=== PATIENT | female | born 1990 | race Caucasian/White ===

== ENCOUNTER 2019-05-07 19:20 | Emergency (ER) | payer MEDICAID ==
[~2019-05-07] VITALS: Ht 139.7 cm; Wt 63.5 kg
[2019-05-07 19:28] VITALS: BP_SYST 119
[2019-05-07] MEDS ORDERED: NACL 0.9% 1,000 ML IV ONE (19:43)
[2019-05-07 20:01] LABS: BASOPHILS # (AUTO) 0.1 K/uL (0.0-0.2); BASOPHILS % (AUTO) 0.9 % (0.0-2.0); EOSINOPHILS # (AUTO) 0.2 K/uL (0.0-0.4); EOSINOPHILS % (AUTO) 1.9 % (0.0-4.0); HEMATOCRIT 38.7 % (36-48); HEMOGLOBIN 13.2 g/dL (12.0-16.0); LYMPHOCYTES # (AUTO) 3.5 K/uL (1.0-5.5); LYMPHOCYTES % (AUTO) 36.6 % (20.5-51.5); MEAN CORPUSCULAR HEMOGLOBIN 30 pg (27-31); MEAN CORPUSCULAR HGB CONC 34 % (32-36); MEAN CORPUSCULAR VOLUME 88 fL (79.0-98.0); MONOCYTES # (AUTO) 0.4 K/uL (0.0-1.0); MONOCYTES % (AUTO) 4.6 % (1.7-9.3); NEUTROPHILS # (AUTO) 5.4 K/uL (1.8-7.7); PLATELET COUNT (AUTO) 270 K/uL (130-430); RED BLOOD CELL COUNT(AUTO) 4.42 MIL/uL (4.2-6.2); RED CELL DISTRIBUTION WIDTH 13.7 % (9.0-15.0); WHITE BLOOD COUNT (AUTO) 9.6 K/uL (4.8-10.8)
[2019-05-07 20:05] LABS: BILIRUBIN,URINE NEGATIVE (NEGATIVE); BLOOD, URINE 3+ (NEGATIVE); CLARITY/URINE SL CLOUDY (CLEAR); COLOR,URINE YELLOW (YELLOW); GLUCOSE,URINE NEGATIVE (NEGATIVE); KETONES,URINE NEGATIVE (NEGATIVE); LEUKOCYTE ESTERASE ,URINE 1+ (NEGATIVE); NITRITE, URINE POSITIVE (NEGATIVE); PH,URINE 6.5 (5.0-8.0); PROTEIN URINE NEGATIVE (NEGATIVE); UROBILINOGEN,URINE 0.2 (0.2-1.0)
[2019-05-07 20:25] LABS: PROTHROMBIN TIME 9.8 SECS (9.5-12.5)
[2019-05-07] MEDS ORDERED: SULFAMETHOXAZOLE/TRIMETHOPR DS 1 TABLET PO ONE (20:30)
[2019-05-07 20:32] LABS: CALCIUM 9.4 mg/dL (8.4-11.0); CREATININE 0.67 mg/dL (0.55-1.30); POTASSIUM 3.4 mmol/L (3.5-5.1)
[2019-05-07 20:36] LABS: TOTAL BILIRUBIN 0.5 mg/dL (0.0-1.0)
[2019-05-07 20:37] LABS: BACTERIA,URINE MANY /HPF (None Seen); MUCUS,URINE None Seen /LPF (None Seen); YEAST,URINE Few /HPF (None Seen)
[2019-05-07] MEDS ORDERED: MORPHINE 4 MG/ML INJ. SYRINGE IVP ONE (23:15)
[2019-05-07 23:48] VITALS: BP_SYST 120
== END 2019-05-07 23:48 | disposition home or self-care (01) ==
LOC: SED 19:20
DX: N39.0 Urinary tract infection, site not specified (principal); Z90.49 Acquired absence of other specified parts of digestive tract; Z88.0 Allergy status to penicillin; Z88.1 Allergy status to other antibiotic agents; Z91.041 Radiographic dye allergy status; Z91.048 Other nonmedicinal substance allergy status
CPT/HCPCS: 36415; 74176; 80053; 81000; 81025; 82150; 83690; 85025; 85610; 87086; 96374; 99284; J2270; J7030; 87186-TC

== ENCOUNTER 2019-06-03 19:54 | Emergency (ER) | payer MEDICAID ==
[~2019-06-03] VITALS: Ht 139.7 cm; Wt 63.5 kg
[2019-06-03 20:07] VITALS: BP_SYST 112
[2019-06-03 20:28] LABS: BILIRUBIN,URINE NEGATIVE (NEGATIVE); BLOOD, URINE 2+ (NEGATIVE); COLOR,URINE YELLOW (YELLOW); GLUCOSE,URINE NEGATIVE (NEGATIVE); KETONES,URINE NEGATIVE (NEGATIVE); LEUKOCYTE ESTERASE ,URINE 1+ (NEGATIVE); NITRITE, URINE NEGATIVE (NEGATIVE); PROTEIN URINE NEGATIVE (NEGATIVE); UROBILINOGEN,URINE 0.2 (0.2-1.0)
[2019-06-03] MEDS ORDERED: DIAZEPAM 5 MG TABLET (VALIUM) PO ONE (20:30)
[2019-06-03] MEDS ORDERED: KETOROLAC TROMETHAMINE 30 MG VIAL IM ONE (20:30)
[2019-06-03 20:38] LABS: CLARITY/URINE HAZY (CLEAR)
[2019-06-03 20:39] LABS: BACTERIA,URINE FEW /HPF (None Seen); MUCUS,URINE None Seen /LPF (None Seen); RBC,URINE 0-3 /HPF (0-3)
[2019-06-03 21:18] LABS: POTASSIUM 3.6 mmol/L (3.5-5.1)
[2019-06-03 21:27] LABS: CREATININE 0.6 mg/dL (0.55-1.30)
[2019-06-03 22:30] VITALS: BP_SYST 112
== END 2019-06-03 22:30 | disposition home or self-care (01) ==
LOC: SED 19:54
DX: N39.0 Urinary tract infection, site not specified (principal); M54.5 Low back pain; J45.909 Unspecified asthma, uncomplicated; Z88.0 Allergy status to penicillin; Z88.1 Allergy status to other antibiotic agents; Z91.041 Radiographic dye allergy status; Z91.048 Other nonmedicinal substance allergy status
CPT/HCPCS: 36415; 80048; 81000; 81025; 87086; 96372; 99283; J1885

== ENCOUNTER 2019-06-16 17:29 | Emergency (ER) | payer MEDICAID, OTHER ==
[~2019-06-16] VITALS: Ht 139.7 cm; Wt 61.2 kg
[2019-06-16 17:36] VITALS: BP_SYST 128
--- NOTE | 2019-06-16 17:47 | NUR ---
Patient to ER bed 08 for evaluation. Side rails up.
--- NOTE | 2019-06-16 17:48 | NUR ---
ER Dr. Peck at bedside examining patient.
--- NOTE | 2019-06-16 17:50 | NUR ---
Pt AAOx4 ambulated into ED c/o 06/25 pain to R forearm r/t fracture s/p falling off ladder at work x 2 days ago. Pt arm was placed in splint and sling and pt was given RX vicodin. Pt refuses to take rx because vicodin makes her nauseous and vomit. Pt has noticed increased pain, swelling, numbness and tingling to fingers. Casting is scheduled with ortho specialist on thursday. No other injuries/complaints per pt/noted. Will continue to monitor.
[2019-06-16 17:55] VITALS: BP_SYST 128
--- NOTE | 2019-06-16 17:55 | NUR ---
Patient given written and verbal discharge instructions and verbalizes understanding. ER MD Peck discussed with patient the results and treatment provided. Patient in stable condition. ID arm band removed. No Rx given. Patient educated on pain management and to follow up with PMD. Pain Scale 6. MD aware. Opportunity for questions provided and answered. Medication side effect fact sheet provided.
== END 2019-06-16 17:55 | disposition home or self-care (01) ==
LOC: SED 17:29
DX: M25.531 Pain in right wrist (principal); J45.909 Unspecified asthma, uncomplicated; Z88.0 Allergy status to penicillin; Z88.1 Allergy status to other antibiotic agents; Z91.041 Radiographic dye allergy status; Z91.048 Other nonmedicinal substance allergy status
CPT/HCPCS: 99281; 99283

== ENCOUNTER 2020-04-19 12:01 | Emergency (ER) | payer OTHER, MEDICAID ==
[~2020-04-19] VITALS: Ht 139.7 cm; Wt 64.9 kg
[2020-04-19 12:02] VITALS: BP_SYST 117
--- NOTE | 2020-04-19 12:02 | NUR ---
BROUGHT BACK TO BED #5 AND TRIAGED. REPORT GIVEN TO EYAD
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
--- NOTE | 2020-04-19 12:30 | NUR ---
ER Dr. Wagner at bedside examining patient.
--- NOTE | 2020-04-19 12:59 | NUR ---
Urine dipped for test, negative result
--- NOTE | 2020-04-19 13:08 | NUR ---
TAKEN TO RADIOLOGY VIA WHEELCHAIR
--- NOTE | 2020-04-19 14:25 | NUR ---
Patient given written and verbal discharge instructions and verbalizes understanding. ER MD discussed with patient the results and treatment provided. Patient in stable condition. ID arm band removed. Rx of Motrin and [place] given. Patient educated on pain management and to follow up with PMD. Pain Scale 3. Opportunity for questions provided and answered. Medication side effect fact sheet provided.
[2020-04-19 14:34] VITALS: BP_SYST 117
== END 2020-04-19 14:25 | disposition home or self-care (01) ==
LOC: SED 12:01
DX: S33.5XXA Sprain of ligaments of lumbar spine, initial encounter (principal); S13.4XXA Sprain of ligaments of cervical spine, initial encounter; J45.909 Unspecified asthma, uncomplicated; Z88.0 Allergy status to penicillin; Z88.8 Allergy status to other drugs, medicaments and biological substances; V89.2XXA Person injured in unspecified motor-vehicle accident, traffic, initial encounter; Y93.89 Activity, other specified; Y92.413 State road as the place of occurrence of the external cause; Y99.8 Other external cause status
CPT/HCPCS: 72125-TC; 72131; 81025; 99285

== ENCOUNTER 2020-10-03 19:18 | Emergency (ER) | payer MEDICAID ==
--- NOTE | 2020-10-04 09:12 | NUR ---
SEE DOWNTIME CHARTING
== END 2020-10-03 20:52 | disposition home or self-care (01) ==
LOC: SED 19:18
DX: S05.01XA Injury of conjunctiva and corneal abrasion without foreign body, right eye, initial encounter (principal); H10.89 Other conjunctivitis; J45.909 Unspecified asthma, uncomplicated; Z87.442 Personal history of urinary calculi; Z86.2 Personal history of diseases of the blood and blood-forming organs and certain disorders involving the immune mechanism; Z88.0 Allergy status to penicillin; Z88.1 Allergy status to other antibiotic agents; X58.XXXA Exposure to other specified factors, initial encounter; Y93.89 Activity, other specified; Y92.096 Garden or yard of other non-institutional residence as the place of occurrence of the external cause; Y99.8 Other external cause status
CPT/HCPCS: 99283

== ENCOUNTER 2023-06-13 17:29 | Emergency (ER) | payer MEDICAID ==
[~2023-06-13] VITALS: Ht 147.3 cm; Wt 73.5 kg
[2023-06-13 17:35] VITALS: BP_SYST 112; PULSE 84; RESP 18; TEMP 98.7; O2SAT 98
--- NOTE | 2023-06-13 18:00 | NUR ---
Patient to ER bed H1 to gown for evaluation. Side rails up. Report given to TOM Mon.
[2023-06-13] MEDS ORDERED: IBUP-1969 PO (19:10)
[2023-06-13] MEDS ORDERED: ACET-2634 PO (19:10)
--- NOTE | 2023-06-13 19:30 | NUR ---
Patient seen by Dr. Shaw at this time.
--- NOTE | 2023-06-13 20:15 | NUR ---
Patient given written and verbal discharge instructions and verbalizes understanding. ER MD discussed with patient the results and treatment provided. Patient in stable condition. ID arm band removed. Rx of acetaminophen and ibuprofen given. Patient educated on pain management and to follow up with PMD. Pain Scale 5/10. Opportunity for questions provided and answered. Medication side effect fact sheet provided.
== END 2023-06-13 20:15 | disposition home or self-care (01) ==
LOC: SED 17:29
DX: R25.2 Cramp and spasm (principal); M79.661 Pain in right lower leg; J45.909 Unspecified asthma, uncomplicated; Z88.0 Allergy status to penicillin; Z88.1 Allergy status to other antibiotic agents; Z91.041 Radiographic dye allergy status; Z79.899 Other long term (current) drug therapy
CPT/HCPCS: 93971; 99284

== ENCOUNTER 2024-08-06 12:52 | Emergency (ER) | payer MEDICAID ==
[~2024-08-06] VITALS: Ht 147.3 cm; Wt 72.1 kg
[~2024-08-06 12:52] MED LIST: ACET-2634 PO; IBUP-1969 PO
[2024-08-06 12:59] VITALS: BP_SYST 124; PULSE 87; RESP 16; TEMP 98.1; O2SAT 99
[2024-08-06] MEDS ORDERED: IBUP-1969 PO (15:07)
[2024-08-06] MEDS ORDERED: TRAM50TA2 PO (15:08)
[2024-08-06] MEDS: KETOROLAC TROMETHAMINE 60 MG/2 ML VIAL IM ONE (15:12)
[2024-08-06] MEDS: HYDROcodone/ACETAMIN 10-325 MG TAB PO ONE (15:13)
[2024-08-06] MEDS ORDERED: D5W 1,000 ML IV SCH (15:45)
[2024-08-06] MEDS: MORPHINE 4 MG INJ. 4 MG/ML VIAL IM ONE (16:06)
[2024-08-06] MEDS ORDERED: ONDANSETRON 4 MG ODT TAB ONE (16:13)
[2024-08-06] MEDS: ONDANSETRON 4 MG ODT TAB PO ONE (16:18)
[2024-08-06 16:21] VITALS: BP_SYST 129; PULSE 87; RESP 16; TEMP 98.1; O2SAT 99
[2024-08-07] MEDS ORDERED: PRED20TA PO (16:05)
[2024-08-07] MEDS ORDERED: OSEL75CA PO (16:05)
== END 2024-08-06 16:19 | disposition home or self-care (01) ==
LOC: SED 12:52
DX: S30.861A Insect bite (nonvenomous) of abdominal wall, initial encounter (principal); J45.909 Unspecified asthma, uncomplicated; Z88.0 Allergy status to penicillin; Z88.1 Allergy status to other antibiotic agents; Z91.041 Radiographic dye allergy status; Z91.048 Other nonmedicinal substance allergy status; W57.XXXA Bitten or stung by nonvenomous insect and other nonvenomous arthropods, initial encounter; Y93.89 Activity, other specified; Y92.89 Other specified places as the place of occurrence of the external cause; Y99.8 Other external cause status
CPT/HCPCS: 99284; 96372; Q0162; J1885; J2270

== ENCOUNTER 2024-08-07 12:43 | Emergency (ER) | payer MEDICAID ==
[~2024-08-07] VITALS: Ht 147.3 cm; Wt 72.1 kg
[2024-08-07 12:43] VITALS: BP_SYST 119; PULSE 80; RESP 17; TEMP 97.9; O2SAT 100
[~2024-08-07 12:43] MED LIST changes: +TRAM50TA2 PO
[2024-08-07 13:23] LABS: BASOPHILS % (AUTO) 0.6 % (0.0-2.0); EOSINOPHILS # (AUTO) 0.1 K/uL (0.0-0.4); EOSINOPHILS % (AUTO) 1.9 % (0.0-4.0); HEMOGLOBIN 12.6 g/dL (12.0-16.0); LYMPHOCYTES # (AUTO) 2.5 K/uL (1.0-5.5); LYMPHOCYTES % (AUTO) 34.5 % (20.5-51.5); MEAN CORPUSCULAR HEMOGLOBIN 30 pg (27-31); MEAN CORPUSCULAR HGB CONC 33 % (32-36); MEAN CORPUSCULAR VOLUME 90 fL (79.0-98.0); MONOCYTES # (AUTO) 0.5 K/uL (0.0-1.0); MONOCYTES % (AUTO) 6.9 % (1.7-9.3); NEUTROPHILS # (AUTO) 4.1 K/uL (1.8-7.7); NEUTROPHILS % (AUTO) 56.1 % (40.0-70.0); PLATELET COUNT (AUTO) 318 K/uL (130-430); RED CELL DISTRIBUTION WIDTH 14.3 % (9.0-15.0); WHITE BLOOD COUNT (AUTO) 7.3 K/uL (4.8-10.8)
[2024-08-07 14:38] LABS: ALBUMIN 3.6 g/dL (3.4-4.8); BILIRUBIN,DIRECT 0.1 mg/dL (0.0-0.3); CALCIUM 8.9 mg/dL (8.4-11.0); CREATININE 0.93 mg/dL (0.55-1.30); POTASSIUM 4.6 mmol/L (3.5-5.1); TOTAL BILIRUBIN 0.5 mg/dL (0.0-1.0)
[2024-08-07 15:03] LABS: COVID19 ANTIGEN SOFIA FIA NEGATIVE (NEGATIVE)
[2024-08-07 15:05] LABS: INFLUENZA TYPE A Negative (NEGATIVE)
[2024-08-07 15:11] LABS: INFLUENZA TYPE B POSITIVE (NEGATIVE)
[2024-08-07 15:18] LABS: SERUM HCG (QUALITATIVE) NEGATIVE (NEGATIVE)
[2024-08-07] MEDS ORDERED: iohexoL 350 mgI/mL, 100 ML INFUS..BTL IV ONE (15:25)
[2024-08-07] MEDS ORDERED: EPINEPHrine JECT 0.1 MG/ML SYR IVP ONE (15:30)
[2024-08-07] MEDS ORDERED: OSEL75CA PO (16:05)
[2024-08-07] MEDS ORDERED: PRED20TA PO (16:05)
[2024-08-07 17:07] VITALS: BP_SYST 124; PULSE 71; RESP 16; TEMP 97.9; O2SAT 98
== END 2024-08-07 16:14 | disposition home or self-care (01) ==
LOC: SED 12:43
DX: J10.1 Influenza due to other identified influenza virus with other respiratory manifestations (principal); Z20.822 Contact with and (suspected) exposure to COVID-19; J45.909 Unspecified asthma, uncomplicated; Z88.0 Allergy status to penicillin; Z88.1 Allergy status to other antibiotic agents; Z91.041 Radiographic dye allergy status; Z88.8 Allergy status to other drugs, medicaments and biological substances; Z79.899 Other long term (current) drug therapy; Z79.2 Long term (current) use of antibiotics
CPT/HCPCS: 99285; 71275; 71045; 87426; 80076; 80048; 84703; 83880; 85025; 85379; 84484; 36415; 93005; 83605; 87804 ×2; 82397; Q9967; J0171